=== PATIENT | male | born 1990 | race Caucasian/White ===

== ENCOUNTER 2017-01-12 11:23 | Emergency (ER) | payer OTHER ==
[2017-01-12] MEDS ORDERED: Acetaminophen 500 MG TAB ONE (13:19)
[2017-01-12 13:29] LABS: ALT (SGPT) 34 U/L (0-55); AST (SGOT) 36 U/L (5-34); Alkaline Phosphatase 58 U/L (40-150); Anion Gap 14 mmol/L (10-20); BUN (Urea Nitrogen) 13 mg/dL (8.9-20.6); Band 18 % (5-11); Bilirubin, Total 0.7 mg/dL (0.2-1.2); Calc. Creatinine Clearance 0 mL/min (70-130); Calcium 9.5 mg/dL (7.8-10.44); Carbon Dioxide 27 mmol/L (22-29); Chloride 97 mmol/L (98-107); Estimated GFR-MDRD Greater than 90; Globulin 4.3 g/dL (2.4-3.5); Hematocrit 42.9 % (42.0-52.0); Neutrophil 75 % (42-75); Protein, Total 8.4 g/dL (6.0-8.3); Red Blood Cell (RBC) Count 4.93 mill/uL (4.70-6.10); Vacuoles SLIGHT; White Blood Cell (WBC) Count 18.9 thou/uL (4.8-10.8)
--- NOTE | 2017-01-12 20:00 | RAD ---
CHEST TWO VIEWS 01/12/17 Comparison is made with the 09/04/15 study. There is a left lower lobe infiltrate consistent with pneumonia. The right lung is relatively clear. The heart is normal in size. Thoracolumbar scoliosis is noted as usual. There are no effusions. IMPRESSION: Left lower lobe pneumonia. POS: HOME
== END 2017-01-12 15:41 | disposition short-term general hospital (02) ==
LOC: BURERS 11:23
DX: J18.9 Pneumonia, unspecified organism (principal); F17.220 Nicotine dependence, chewing tobacco, uncomplicated
CPT/HCPCS: 36415; 71020; 80053; 83605; 85025; 87040; 94640; 96361; 96365; 96366; J1956; J7620

== ENCOUNTER 2022-02-02 12:28 | Outpatient (CLI) | payer OTHER | END 2022-02-02 12:29 | disposition home or self-care (01) | LOC: BURRAD 12:28 | PROVIDERS: ATTEND Family Medicine | DX: M54.2 Cervicalgia (principal) | CPT/HCPCS: 72050 ==

== ENCOUNTER 2024-08-21 17:58 | Emergency (ER) | payer OTHER ==
[2024-08-21] MEDS ORDERED: Ibuprofen 200 MG TAB ONE (18:14)
[2024-08-21 18:35] LABS: Hematocrit 46.3 % (42.0-52.0); Hemoglobin 14.8 g/dL (14.0-18.0); Mean Corpuscular HGB CONC 31.9 g/dL (32.0-36.0); Mean Corpuscular Hemoglobin 28.6 pg (27.0-31.0); Mean Corpuscular Volume 89.5 fl (78.0-98.0); Mean Platelet Volume 9.5 fL (7.4-10.4); Platelet Count 333 10x3/uL (130-400); RBC Distribution Width 12.1 % (11.5-14.5); Red Blood Cell (RBC) Count 5.17 mill/uL (4.70-6.10); White Blood Cell (WBC) Count 21.3 10x3/uL (4.8-10.8)
[2024-08-21 18:48] LABS: ALT (SGPT) 15 U/L (8-55); AST (SGOT) 24 U/L (5-34); Albumin 3.9 g/dL (3.5-5.0); Alkaline Phosphatase 45 U/L (40-110); Anion Gap 17 mmol/L (10-20); BUN (Urea Nitrogen) 7 mg/dL (8.9-20.6); Bilirubin, Total 0.4 mg/dL (0.2-1.2); Calc. Creatinine Clearance 0 mL/min (70-130); Calcium 10.2 mg/dL (7.8-10.44); Carbon Dioxide 28 mmol/L (22-29); Chloride 97 mmol/L (98-107); Estimated GFR 143; Globulin 4.8 g/dL (2.4-3.5); Glucose 109 mg/dL (70-105); Potassium 4.1 mmol/L (3.5-5.1); Protein, Total 8.7 g/dL (6.0-8.3); Sodium 138 mmol/L (136-145)
[2024-08-21 18:49] LABS: Troponin I 0.082 ng/mL (< 0.028)
[2024-08-21 19:04] LABS: Band 9 % (5-11); Eosinophils 1 % (0-10); Lymphocytes 1 % (21-51); MDiff Complete? YES; Monocytes 4 % (0-10); Neutrophil 85 % (42-75)
[2024-08-21] MEDS ORDERED: LevoFLOXacin D5W 500 mg (100 mL) BAG ONE (19:17)
== END 2024-08-21 21:03 | disposition short-term general hospital (02) ==
LOC: BURERS 17:58
DX: J18.9 Pneumonia, unspecified organism (principal); R79.89 Other specified abnormal findings of blood chemistry
CPT/HCPCS: 36415; 71045; 80053; 83605; 83880; 84484; 85025; 85379; 87040; 87428; 93005; 94760; 96365; J1956

== ENCOUNTER 2024-12-15 21:13 | Emergency (ER) | payer OTHER ==
[2024-12-15 22:16] LABS: #Basophils 0.2 thou/uL (0.0-0.2); #Lymphocytes 0.3 thou/uL (1.20-3.40); #Monocytes 1.5 thou/uL (0.11-0.59); #Neutrophils 14.7 thou/uL (1.40-6.50); %Basophils 0.9 % (0.0-1.0); %Lymphocytes 1.7 % (21.0-51.0); %Monocytes 9.1 % (0.0-10.0); %Neutrophils 88.3 % (42.0-75.0); Hematocrit 41.5 % (42.0-52.0); Hemoglobin 13.9 g/dL (14.0-18.0); Mean Corpuscular HGB CONC 33.5 g/dL (32.0-36.0); Mean Corpuscular Hemoglobin 27.8 pg (27.0-31.0); Mean Corpuscular Volume 83.2 fl (78.0-98.0); Mean Platelet Volume 7.7 fL (7.4-10.4); Platelet Count 308 10x3/uL (130-400); Red Blood Cell (RBC) Count 4.99 mill/uL (4.70-6.10); White Blood Cell (WBC) Count 16.7 10x3/uL (4.8-10.8)
[2024-12-15] MEDS ORDERED: Ketorolac Tromethamine 30 MG (1 mL) VIAL ONE (22:28)
[2024-12-15] MEDS ORDERED: Ondansetron PF 4 MG/2 ML Vial ONE (22:28)
[2024-12-15 22:33] LABS: ALT (SGPT) 15 U/L (Less than 45); AST (SGOT) 21 U/L (11-34); Alkaline Phosphatase 59 U/L (40-110); Anion Gap 18 mmol/L (10-20); BUN (Urea Nitrogen) 7 mg/dL (8.9-20.6); Bilirubin, Total 0.4 mg/dL (0.3-1.2); Calc. Creatinine Clearance 0 mL/min (70-130); Calcium 10.3 mg/dL (7.8-10.44); Carbon Dioxide 35 mmol/L (22-29); Chloride 88 mmol/L (98-107); Globulin 4.4 g/dL (2.4-3.5); Glucose 99 mg/dL (70-105); Potassium 3.5 mmol/L (3.5-5.1); Protein, Total 8.4 g/dL (6.0-8.3); Sodium 137 mmol/L (136-145)
[2024-12-15 22:39] LABS: Troponin I 0.058 ng/mL (< 0.028)
[2024-12-15] MEDS ORDERED: LevoFLOXacin D5W 500 mg (100 mL) BAG ONE (23:04)
== END 2024-12-16 00:35 | disposition short-term general hospital (02) ==
LOC: BURERS 21:13
DX: J18.9 Pneumonia, unspecified organism (principal); J93.83 Other pneumothorax
CPT/HCPCS: 71045; 80053; 83605; 83880; 84145; 84484; 85025; 87040; 87400; 87426; 93005; 94760; 96365; 96375; J1885; J1956; J2405